=== PATIENT | female | born 1975 | race Caucasian/White ===

== ENCOUNTER 2022-03-30 22:03 | Emergency (ER) | payer OTHER, SELFPAY ==
[2022-03-30 22:04] VITALS: BP 142/93; PULSE 97; RESP 16; TEMP 35.5; O2SAT 100; BMI 26.5
--- NOTE | 2022-03-30 22:28 | EKG12_ITS ---
Test Reason : DYSRHYTHMIA Blood Pressure : / mmHG Vent. Rate : 093 BPM Atrial Rate : 093 BPM P-R Int : 168 ms QRS Dur : 086 ms QT Int : 352 ms P-R-T Axes : 074 -13 065 degrees QTc Int : 437 ms Normal sinus rhythm Septal infarct , age undetermined , can not be excluded Abnormal ECG Confirmed by HERB GALLEGOS, DION ([id number]), deputy editor in chief ZABRINA ROBLES ([id number]) on 04/01/2022 9:20:19 AM Referred By: ERMELINDA Confirmed By:DION ESTEVEZ MD
--- NOTE | 2022-03-30 22:29 | EX.ED.DYSGE1 ---
HPI History of Present Illness Chief Complaint: General Illness Informant: patient Narrative Narrative: Patient is a 46-year-old female with history of tobacco use with vaping and ADHD on Adderall presenting with palpitations, lightheadedness and generalized weakness. Patient was diagnosed with COVID-19 infection on Sunday, 2 days ago. She started having symptoms 4 days ago. Initially she had a fever of 101.5 but the maximum however it improved with Motrin. She states that she was actually feeling better but this morning she had a near syncopal episode. She was doing stuff around the house and overdid it. For the past few hours she is been having chills, shortness of breath, brain fog and had an episode of palpitations. She notes that she had 4 episodes of diarrhea today. She states it was green and foamy. Drink 2 large glasses of water but still feels that she is dehydrated and her mouth is dry. At 1 point she checked her pulse and her heart rate was in the 130s and questionably irregular. Patient does have a history of anemia and is currently on her menstrual cycle. She is never had a blood transfusion. She previously had a cough but has since resolved. She describes her shortness of breath as feeling like I cannot get a deep breath. Denies any chest pain. No rash or skin changes. Denies any ear pain but is having some nasal congestion. No other complaints at this time. Denies any swelling of her legs. Denies a history of DVT or PE. Is not on any estrogen or hormonal supplements. PFSH PFSH Home Medications dextroamphetamine-amphetamine 20 mg tablet (Adderall) 20 mg PO DAILY 03/30/22 [History Last Taken Unknown] Allergy/AdvReac Type Severity Reaction Status Date / Time cat dander Allergy Rash Verified 03/30/22 22:06 Social History Smoking Status: Never smoker ROS ROS ED Constitutional Constitutional ED: Reports chills and fever(s) Eyes Eyes: Denies change in vision or diplopia ENT ENT ED: Reports rhinorrhea; Denies ear pain or sore throat Cardiovascular Cardiovascular: Reports racing heartbeat; Denies chest pain or palpitations Respiratory/Chest Respiratory/Chest: Reports cough and dyspnea Gastrointestinal Gastrointestinal: Reports diarrhea; Denies abdominal pain or vomiting Genitourinary Genitourinary ED: Denies dysuria, hematuria or urinary frequency Musculoskeletal Musculoskeletal: Denies arthralgias or myalgias Integumentary Denies rash Neurologic Neurologic: Reports headache(s); Denies paresthesias or weakness Psychiatric Psychiatric: Denies anxiety or depression Hematologic/Lymphatic Hematologic/Lymphatic: Denies easy bleeding or easy bruising EXAM Physical Exam Const Vital Signs: 03/30/22 22:04 03/30/22 22:25 03/31/22 02:48 Temperature 95.9 F L 98.2 F Temperature Source Temporal Pulse Rate 97 96 Respiratory Rate 16 18 Respiratory Effort Non-Labored Respiratory Pattern Tachypnea Blood Pressure 142/93 H 121/83 H Blood Pressure Mean 109 Pulse Ox 100 100 Oxygen Delivery Method Room Air Positive well nourished and well developed General Appearance ED: well developed and NAD HEENT Reports TM's clear and moist mucous membranes Negative for trauma Tympanic Membrane ED: Yes TM's clear Eyes PERRL and EOMs intact bilaterally General Eye ED: Negative for pale conjunctiva Neck supple and no JVD Chest Wall inspection of chest normal and palpation of chest normal Resp normal respiratory effort and clear to auscultation bilaterally Auscultation: Negative for wheezes Cardio regular rate, regular rhythm and no murmurs GI normal to inspection, nondistended, normoactive bowel sounds and non-tender Back/Spine no CVA tenderness Extremity normal to inspection General Extremety ED: Negative for edema or tenderness General Extremity: Negative for edema Neuro oriented x3 and no sensory deficits noted Motor Exam: strength 5/5 throughout; Negative for general weakness Psych mental status grossly normal Mood & Affect: anxious Skin no rashes or lesions noted MDM MDM MDM Narrative Medical decision making narrative: Patient is evaluated for couple hours of lightheadedness, shortness of breath and brain fog. She has a recent COVID-19 diagnosis. Vital signs are largely normal. She is PE RC negative at this time however she reports a heart rate in the 130s prior to arrival so we will obtain a D-dimer. We will check labs to rule out dehydration or electrolyte derangement. No physical exam findings concerning for secondary bacterial infection. Patient's D-dimer is minimally elevated. CT obtained which does not show any acute process. She is found to be hyponatremic with a sodium of 126. After liter of fluid sodium normalizes at 135. I suspect it was from patient's large free water intake prior to arrival. While in the ER she continues to complain of tingling of her fingers and clinically patient appears quite anxious. She is speaking rapidly even though she states she does not feel anxious. Patient is given a dose of IV Ativan as I discussed my concerns with her and her . On repeat evaluation patient is much more comfortable. Her tingling is improving. I feel that patient can be discharged home. Is given return precautions. Lab Data Attestation: I reviewed the patient's lab results. Labs: Laboratory Results - last 24 hr 03/30/22 03/30/22 03/30/22 22:17 22:41 22:41 WBC 8.3 RBC 3.89 L Hgb 12.3 Hct 34.4 L MCV 88.4 MCH 31.6 MCHC 35.8 RDW Std Deviation 37.5 RDW Coeff of Elbert 11.7 Plt Count 209 MPV 8.9 Immature Gran % (Auto) 0.400 Neut % (Auto) 80.2 H Lymph % (Auto) 14.0 L [place] % (Auto) 5.1 Eos % (Auto) 0.2 Baso % (Auto) 0.1 Absolute Neuts (auto) 6.7 Absolute Lymphs (auto) 1.16 Nucleated RBC % 0 D-Dimer Quant (PE/DVT) 0.58 H* Sodium Potassium Chloride Carbon Dioxide Anion Gap BUN Creatinine Estim Creat Clear Calc Est GFR (MDRD) Af Amer Est GFR (MDRD) Non-Af BUN/Creatinine Ratio Glucose Calcium Total Bilirubin AST ALT Alkaline Phosphatase Total Protein Albumin Globulin Albumin/Globulin Ratio Urine Color Straw Urine Clarity Clear Urine pH 7.0 Ur Specific [place] 1.005 Urine Protein Negative Urine Glucose (UA) Normal Urine Ketones Negative Urine Occult Blood Negative Urine Nitrite Negative Urine Bilirubin Negative Urine Urobilinogen Normal Ur Leukocyte Esterase Negative Urine RBC 0 SEEN Urine WBC 0 SEEN Ur Squamous Epith Cells 0 SEEN Urine Bacteria 0 SEEN Urine Mucus 0 SEEN Urine Test Negative 03/30/22 03/31/22 22:41 00:43 WBC RBC Hgb Hct MCV MCH MCHC RDW Std Deviation RDW Coeff of Elbert Plt Count MPV Immature Gran % (Auto) Neut % (Auto) Lymph % (Auto) [place] % (Auto) Eos % (Auto) Baso % (Auto) Absolute Neuts (auto) Absolute Lymphs (auto) Nucleated RBC % D-Dimer Quant (PE/DVT) Sodium 126 L 135 L Potassium 3.3 L 3.5 Chloride 96 L 105 Carbon Dioxide 25.0 20.0 L Anion Gap 5 10 BUN 14 11 Creatinine 0.61 0.72 Estim Creat Clear Calc 97.36 Est GFR (MDRD) Af Amer 136 Est GFR (MDRD) Non-Af 113 BUN/Creatinine Ratio 22.9 H 15.2 Glucose 115 H 151 H Calcium 8.2 L Total Bilirubin 0.60 AST 21 ALT 36 Alkaline Phosphatase 47 Total Protein 7.4 Albumin 3.7 Globulin 3.7 Albumin/Globulin Ratio 1.0 Urine Color Urine Clarity Urine pH Ur Specific [place] Urine Protein Urine Glucose (UA) Urine Ketones Urine Occult Blood Urine Nitrite Urine Bilirubin Urine Urobilinogen Ur Leukocyte Esterase Urine RBC Urine WBC Ur Squamous Epith Cells Urine Bacteria Urine Mucus Urine Test Radiography Diagnostic Testing: Clinical Impression(s) from Imaging Studies Chest CTA 03/30/22 23:10 IMPRESSION: Normal CTA chest examination, without a demonstrated pulmonary embolism or arterial dissection. Electronically Signed: Rajani Whitlock MD at 23:47 EDT Reading Location ID and State: [facility] / [place] Tel , Service support , Rhythm Strip Rhythm Strip: Sinus Rhythm Rate: 93 Ectopy: None EKG Initial EKG: Attestation: I personally reviewed and interpreted this EKG as follows: Interpretation: Sinus Rhythm Comments: Normal sinus rhythm rate of 93 Normal axis Normal intervals Normal ST segments Discharge Plan Triage Chief Complaint: General Illness ED Provider: Naila Reyes Dx/Rx/DC Orders Clinical Impression: Acute hyponatremia, Acute dyspnea, COVID-19 Instructions: ED Dehydration (Adult), ED Hyponatremia Prescriptions: No Action dextroamphetamine-amphetamine [Adderall] 20 mg Tablet 20 mg PO DAILY Primary Care Provider: Elian Richardson Referrals: Elian Richardson MD [Primary Care Provider] - Disposition Disposition: Home, Self Care Discharge Date/Time: 03/31/22 02:49
[2022-03-30 22:37] LABS: Bacteria 0 SEEN /hpf (None Seen); Mucous, Urine 0 SEEN /hpf (<or=2+); Red Blood Cells-Urine 0 SEEN /hpf (0-5); Squamous Epithelial Cells - UA 0 SEEN /hpf (5-10); White Blood Cells 0 SEEN /hpf (0-5)
[2022-03-30 22:40] LABS: Color, Urine Straw (Yellow); Glucose, Dipstick Normal (Normal); Ketone-Dipstick Negative (Negative); Leukocyte Esterase-Dipstick Negative /ul (Negative); Nitrite-Dipstick Negative (Negative); Occult Blood-Urine Negative /ul (Negative); Protein-Dipstick Negative (Negative); Specific Gravity, Urine 1.005 (1.002-1.030); Urine Bilirubin Dipstick Negative (Negative); Urine Clarity Clear (Clear); Urine Urobilinogen Normal (Normal)
[2022-03-30] MEDS: 0.9% Normal Saline 1,000 ML 999 ML IV (22:43)
[2022-03-30 22:46] LABS: Internal QC Validated? YES +Cl - CLEAR BKGD; Pregnancy, Urine Negative Negative
[2022-03-30 22:46] LABS: Absolute Lymphocyte Count 1.16 X10^3/uL (0.83-4.51); Absolute Neutrophil Count 6.7 X10^3/uL (2.0-7.7); Basophil# 0.01 X10^3/uL; Basophil% 0.1 % (0-1); Eosinophil# 0.02 X10^3/uL; Eosinophils% 0.2 % (0-5); Hematocrit 34.4 % (37-47); Hemoglobin 12.3 g/dL (12.0-15.0); Lymphocyte # 1.16 X10^3/ul (0.83-4.51); Mean Corp Hgb Conc 35.8 g/dL (32-36); Mean Corpuscular Hgb 31.6 pg (27.0-32.0); Mean Corpuscular Volume 88.4 fL (81-99); Mean Platelet Vol. 8.9 fl (6.2-12.0); Monocyte# 0.42 X10^3/uL; Monocyte% 5.1 % (0-10); NRBC Flagged by Analyzer 0 % (0-5); Neutrophil # 6.66 X10^3/uL (2.7-7.7); Neutrophil % 80.2 % (47-70); Platelet Count 209 K/mm3 (150-450); RBC Distribution Width CV 11.7 % (11.6-14.6); RBC Distribution Width SD 37.5 fl (35.1-43.9); Red Blood Count 3.89 M/mm3 (4.2-5.4); White Blood Count 8.3 K/mm3 (4.4-11.0)
[2022-03-30 23:02] LABS: AST(SGOT) 21 U/L (15-37); Alanine Aminotransfer ALT/SGPT 36 U/L (13-56); Albumin, Serum 3.7 g/dL (3.2-5.0); Alkaline Phosphatase 47 U/L (45-117); Anion Gap 5 (5-15); BUN 14 mg/dL (7-18); BUN/Creat Ratio 22.9 RATIO (10-20); Calcium,Total 8.2 mg/dL (8.5-10.1); Chloride 96 mmol/L (98-107); Creatinine, Serum 0.61 mg/dL (0.55-1.02); EST Glomerular Filtration Rate 113 mL/min (>60); Est Glom Filt Rate - Afr Amer 136 mL/min (>60); Estimated Creatinine Clearance 97.36 ml/min; Globulin 3.7 g/dL (2.2-4.2); Glucose 115 mg/dL (74-106); Potassium 3.3 mmol/L (3.5-5.1); Protein, Total 7.4 g/dL (6.4-8.2); Sodium Level 126 mmol/L (136-145)
[2022-03-30 23:03] LABS: D-Dimer Quantitative (DVT/PE) 0.58 FEU/ug/m (0.27-0.49)
--- NOTE | 2022-03-30 23:10 | CT_ITS ---
STUDY: CTA CHEST REASON FOR EXAM: Female, 46 years old. sob, elevated dimer RADIATION DOSAGE (If Supplied By Facility): CTDIvol = ( 11.31 ) mGy, DLP = ( 429.88 ) mGycm TECHNIQUE: The examination was performed with the intravenous administration of IV 100mL Isovue-370. Post-processing of the angiographic images was performed, with multiplanar reformation and 3D reconstruction. Individualized dose optimization techniques were used for this CT. COMPARISON: None. FINDINGS: Normal enhancement of the main pulmonary artery and right and left pulmonary arteries. Normal enhancement of the bilateral peripheral pulmonary arteries. There is no demonstrated pulmonary embolism. Normal thoracic aorta and visualized great vessels. There is no demonstrated aortic dissection. Normal heart and pericardium. Normal mediastinum. Normal hilar regions. Normal visualized trachea and bronchi. The lungs are well expanded. Normal pulmonary parenchyma. Normal pleura. Normal chest wall structures. Normal osseous structures. Normal visualized upper abdomen. CT/CTA Chest W/WO Contrast IMPRESSION: Normal CTA chest examination, without a demonstrated pulmonary embolism or arterial dissection. Electronically Signed: Rajani Whitlock MD at 23:47 EDT ,
[2022-03-31 01:02] LABS: Anion Gap 10 (5-15); BUN 11 mg/dL (7-18); BUN/Creat Ratio 15.2 RATIO (10-20); Chloride 105 mmol/L (98-107); Creatinine, Serum 0.72 mg/dL (0.55-1.02); Glucose 151 mg/dL (74-106); Potassium 3.5 mmol/L (3.5-5.1); Sodium Level 135 mmol/L (136-145)
[2022-03-31] MEDS: LORazepam 2 MG/ML Syringe 0.5 MG IV (01:41)
[2022-03-31 02:48] VITALS: BP 121/83; PULSE 96; RESP 18; TEMP 36.8; O2SAT 100
== END 2022-03-31 02:49 | disposition home or self-care (01) ==
PROVIDERS: Emergency Provider Emergency Medicine; Visit Provider Emergency Medicine
DX: U07.1 COVID-19 (principal); E87.1 Hypo-osmolality and hyponatremia; R06.00 Dyspnea, unspecified; Z87.891 Personal history of nicotine dependence
CPT/HCPCS: 71275; 80047; 80053; 81001; 81025; 85025; 85379; 93005; 96374; 99282; J7030; Q9967; A4216